=== PATIENT | female | born 1995 | race Two or more races ===

== ENCOUNTER 2021-05-29 11:59 | Emergency (ER) | payer SELFPAY ==
[2021-05-29] MEDS ORDERED: Sodium Chloride 0.9% 1,000 ML IV ONE (12:53)
[2021-05-29] MEDS ORDERED: Ondansetron 4 MG/2 ML SDV IVPUSH ONE (12:53)
[2021-05-29] MEDS ORDERED: Sodium Chloride 0.9% 10 ML Syringe FLUSH PRN (12:53)
[2021-05-29] MEDS ORDERED: Sodium Chloride 0.9% 2.5 ML Syringe FLUSH PRN (12:53)
[2021-05-29 13:18] LABS: BLOOD UREA NITROGEN,BUN 8 mg/dL (7.0-18.0); CARBON DIOXIDE,CO2 16.5 mmol/L (21.0-32.0); CHLORIDE,CL 106 mmol/L (98-107); GLUCOSE RANDOM 109 mg/dL (74-106); LIPASE 126 U/L (73-393); POTASSIUM,K 3.5 mmol/L (3.5-5.1); SODIUM,NA 140 mmol/L (136-145)
--- NOTE | 2021-05-29 14:07 | EDM.PDOC ---
ED HPI GENERAL MEDICAL PROBLEM - General Chief Complaint: Gastrointestinal Problem Stated Complaint: DEHYDRATION Time Seen by Provider: 05/29/21 12:10 - History of Present Illness INITIAL COMMENTS - FREE TEXT/NARRATIVE: HISTORY AND PHYSICAL: History of present illness: This is a 25-year-old female who presents ER today with decreased p.o. intake, nausea, vomiting, midepigastric abdominal pain since drinking an excessive amoun t of alcohol last night. Patient reports that she usually does not drink much alcohol however last night she drank a lot of mixed drinks that were extremely high in alcohol content. Patient reports that she had multiple episodes of nausea vomiting and has been unable to keep any oral liquids or solids down since waking up today. Patient denies any recent fevers, shakes, chills. Patient denies any diarrhea. Patient reports normal bowel movement. Patient denies any dysuria, frequency, urgency. Patient reports she currently taking control medication. Patient denies any recent cough cold or rhinorrhea. Patient denies any melena or bright red blood per rectum. Patient reports that she is not habitual drinker. Patient denies any history of hypertension, diabetes, liver, lung, kidney, abdominal issues in the past. Patient has any abdominal or chest surgeries in the past. Review of systems: As per history of present illness and below otherwise all systems reviewed and negative. Past medical history: As per history of present illness and as reviewed below otherwise noncontributory. Surgical history: As per history of present illness and as reviewed below otherwise no ncontributory. Social history: No reported history of drug abuse. Family history: As per history of present illness and as reviewed below otherwise noncontributory. Physical exam: This patient was seen and evaluated during the 2019 SARS-CoV-2 novel coronavirus pandemic period. Community viral transmission is ongoing at time of this encounter and the emergency department is operating under pandemic response procedures. Constitutional: Patient is oriented to person, place, and time. Appears well- developed and well-nourished. No distress. HEENT: Moist mucous membranes Head: Normocephalic and atraumatic Eyes: Right eye exhibits no discharge. Left eye exhibits no discharge. No scleral icterus Neck: Normal range of motion. No tracheal deviation present. Cardiovascular: Normal rate and regular rhythm. Pulmonary: Effort normal, no respiratory distress. Abd: Soft, nondistended, no rebound/guarding, no psoas or obturator signs, no tenderness at Mcberney's point, no Fowler's sign. Pt does not present with an exam that would be consistent with an acute surgical abdomen at this time, mild tenderness palpation midepigastric region Musculoskeletal: Normal range of motion Neurologic: Alert and oriented to person, place and time. Skin: [place], warm and dry. Psychiatric: Normal mood and affect. Behavior is normal. Judgment and thought content normal. Nursing note and vital signs have been reviewed Diagnostics: CBC, CMP, lipase, Therapeutics: NSS, Zofran Assessment and plan: 25-year-old who presents ER today with nausea vomiting and abdominal discomfort after drinking excessive amount of alcohol yesterday. Patient's labs have been reviewed. Patient does have a slight anion gap which is most likely secondary to her alcohol use and vomiting. Patient has been monitored in the ED and feels much improved after the hydration and Zofran that was given. Patient is tolerating p.o. solids and liquids here in the ED at this time. Patient be discharged home with a prescription for Zofran and instructions regarding alcohol abuse. Definitive disposition and diagnosis as appropriate pending reevaluation and review of above. 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: Musculoskeletal History: Reports: None Neurological History: Reports: None Psychiatric History: Reports: None Endocrine/Metabolic History: Reports: None Hematologic History: Reports: None Immunologic History: Reports: None Oncologic (Cancer) History: Reports: None Dermatologic History: Reports: None - Infectious Disease History Infectious Disease History: Reports: None - Past Surgical History Head Surgeries/Procedures: Reports: None Social & Family History - Family History Family Medical History: No Pertinent Family History - Tobacco Use Tobacco Use Status *Q: Current Some Day Tobacco User Years of Tobacco use: 5 Packs/Tins Daily: 0.2 - Caffeine Use Caffeine Use: Reports: None - Alcohol Use Days Per Week of Alcohol Use: 2 Number of Drinks Per Day: 1 Total Drinks Per Week: 2 - Recreational Drug Use Recreational Drug Use: No ED ROS GENERAL - Review of Systems Review Of Systems: See Below ED EXAM, GENERAL - Physical Exam Exam: See Below Course - Vital Signs Last Recorded V/S: Last Vital Signs Temp 97.2 F 05/29/21 12:17 Pulse 98 05/29/21 12:59 Resp 18 05/29/21 12:59 BP 111/65 05/29/21 12:59 Pulse Ox 98 05/29/21 12:59 - Orders/Labs/Meds Orders: Active Orders 24 hr Category Date Time Status Sodium Chloride 0.9% [Saline Flush] Med 05/29/21 12:53 Active 10 ml FLUSH ASDIRECTED PRN Sodium Chloride 0.9% [Saline Flush] Med 05/29/21 12:53 Active 2.5 ml FLUSH ASDIRECTED PRN Saline Lock Insert [OM.PC] Stat Oth 05/29/21 12:53 Ordered Medication Orders Sodium Chloride (Sodium Chloride 0.9% 10 Ml Syringe) 10 ml FLUSH ASDIRECTED PRN PRN Reason: Keep Vein Open Last Admin: 05/29/21 12:58 Dose: 10 ml Documented by: MARIA ALEJANDRA Sodium Chloride (Sodium Chloride 0.9% 2.5 Ml Syringe) 2.5 ml FLUSH ASDIRECTED PRN PRN Reason: Keep Vein Open Last Admin: 05/29/21 12:58 Dose: 2.5 ml Documented by: MARIA ALEJANDRA Labs: Laboratory Tests 05/29/21 05/29/21 05/29/21 Range/Units 12:21 12:21 12:21 WBC 6.60 (4.0-11.0) K/uL RBC 4.81 (4.30-5.90) M/uL Hgb 14.9 (12.0-16.0) g/dL Hct 41.0 (36.0-46.0) % MCV 85.2 (80.0-98.0) fL MCH 31.0 (27.0-32.0) pg MCHC 36.3 (31.0-37.0) g/dL RDW Std Deviation 39.3 (28.0-62.0) fl RDW Coeff of [place] 13 (11.0-15.0) % Plt Count 244 (150-400) K/uL MPV 10.20 (7.40-12.00) fL Neut % (Auto) 54.7 (48.0-80.0) % Lymph % (Auto) 41.7 H (16.0-40.0) % [place] % (Auto) 3.0 (0.0-15.0) % Eos % (Auto) 0.3 (0.0-7.0) % Baso % (Auto) 0.3 (0.0-1.5) % Neut # (Auto) 3.6 (1.4-5.7) K/uL Lymph # (Auto) 2.8 H (0.6-2.4) K/uL [place] # (Auto) 0.2 (0.0-0.8) K/uL Eos # (Auto) 0.0 (0.0-0.7) K/uL Baso # (Auto) 0.0 (0.0-0.1) K/uL Nucleated RBC % 0.0 /100WBC Nucleated RBCs # 0 K/uL Sodium 140 (136-145) mmol/L Potassium 3.5 (3.5-5.1) mmol/L Chloride 106 (98-107) mmol/L Carbon Dioxide 16.5 L (21.0-32.0) mmol/L BUN 8 (7.0-18.0) mg/dL Creatinine 0.6 (0.6-1.0) mg/dL Est Cr Clr Drug Dosing 104.74 mL/min Estimated GFR (MDRD) > 60.0 ml/min Glucose 109 H (74-106) mg/dL Calcium 8.8 (8.5-10.1) mg/dL Total Bilirubin 0.3 (0.2-1.0) mg/dL AST 19 (15-37) IU/L ALT 34 (14-63) IU/L Alkaline Phosphatase 64 (46-116) U/L Total Protein 7.9 (6.4-8.2) g/dL Albumin 3.8 (3.4-5.0) g/dL Globulin 4.1 H (2.6-4.0) g/dL Albumin/Globulin Ratio 0.9 (0.9-1.6) Lipase 126 (73-393) U/L HCG, Qual NEGATIVE (NEG) Meds: Medications Generic Name Dose Route Start Last Admin Trade Name Freq PRN Reason Stop Dose Admin Sodium Chloride 10 ml 05/29/21 12:53 05/29/21 12:58 Sodium Chloride 0.9% 10 Ml Syringe FLUSH 10 ml ASDIRECTED PRN Administration Keep Vein Open Sodium Chloride 2.5 ml 05/29/21 12:53 05/29/21 12:58 Sodium Chloride 0.9% 2.5 Ml Syringe FLUSH 2.5 ml ASDIRECTED PRN Administration Keep Vein Open Discontinued Medications Generic Name Dose Route Start Last Admin Trade Name Freq PRN Reason Stop Dose Admin Sodium Chloride 1,000 mls @ 999 mls/hr 05/29/21 12:53 05/29/21 12:58 Normal Saline IV 05/29/21 13:53 999 mls/hr .Bolus ONE Administration Ondansetron HCl 4 mg 05/29/21 12:53 05/29/21 12:58 Ondansetron 4 Mg/2 Ml Sdv IVPUSH 05/29/21 12:54 4 mg ONETIME ONE Administration Departure - Departure Time of Disposition: 14:07 Disposition: Home, Self-Care 01 Condition: Good Clinical Impression: Alcohol abuse, Dehydration, Nausea & vomiting - Discharge Information Instructions: Alcohol Use Disorder, Nausea and Vomiting, Adult, Dehydration, Adult, [id number] Referrals: PCP,None [Primary Care Provider] - Additional Instructions: You were seen and evaluated in the ER today secondary to dehydration from alcohol use. Please be careful how much you drink. You were given IV fluids in the ED as well as Zofran IV to assist with your nausea. Please make sure you home and drink plenty of liquids. Please get plenty of rest over the next 1 to 2 days. Please return to the ER if your symptoms should return or if you have any new or concerning symptoms. The following information is given to patients seen in the emergency department who are being discharged to home. This information is to outline your options for follow-up care. We provide all patients seen in our emergency department with a follow-up referral. The need for follow-up, as well as the timing and circumstances, are variable depending upon the specifics of your emergency department visit. If you don't have a primary care physician on staff, we will provide you with a referral. We always advise you to contact your personal physician following an emergency department visit to inform them of the circumstance of the visit and for follow-up with them and/or the need for any referrals to a consulting specialist. The emergency department will also refer you to a specialist when appropriate. This referral assures that you have the opportunity for follow-up care with a specialist. All of these measure are taken in an effort to provide you with optimal care, which includes your follow-up. Under all circumstances we always encourage you to contact your private physician who remains a resource for coordinating your care. When calling for follow-up care, please make the office aware that this follow-up is from your recent emergency room visit. If for any reason you are refused follow-up, please contact the [facility] Emergency Department at and asked to speak to the emergency department charge nurse. [facility] [address] [place] [address] [place] [address] Sepsis Event Note (ED) - Evaluation Sepsis Screening Result: No Definite Risk - Focused Exam Vital Signs: Vital Signs Temp Pulse Resp BP Pulse Ox 05/29/21 12:59 98 18 111/65 98 05/29/21 12:17 97.2 F 98 18 99 - My Orders Last 24 Hours: My Active Orders 05/29/21 12:53 Sodium Chloride 0.9% [Saline Flush] 10 ml FLUSH ASDIRECTED PRN Sodium Chloride 0.9% [Saline Flush] 2.5 ml FLUSH ASDIRECTED PRN Saline Lock Insert [OM.PC] Stat - Assessment/Plan Last 24 Hours: My Active Orders 05/29/21 12:53 Sodium Chloride 0.9% [Saline Flush] 10 ml FLUSH ASDIRECTED PRN Sodium Chloride 0.9% [Saline Flush] 2.5 ml FLUSH ASDIRECTED PRN Saline Lock Insert [OM.PC] Stat
== END 2021-05-29 14:46 | disposition home or self-care (01) ==
LOC: MW.ED 11:59
DX: R11.2 Nausea with vomiting, unspecified (principal); E86.0 Dehydration; F10.10 Alcohol abuse, uncomplicated; Z72.0 Tobacco use; Z88.1 Allergy status to other antibiotic agents; Z88.8 Allergy status to other drugs, medicaments and biological substances
CPT/HCPCS: 36415; 80053; 83690; 84703; 85025; 96374; 99284; J2405; J7030

== ENCOUNTER 2021-09-13 21:36 | Emergency (ER) | payer SELFPAY ==
[2021-09-13] MEDS ORDERED: traMADol 50 MG Tab PO ONE (23:13)
--- NOTE | 2021-09-14 00:44 | CR ---
Indication: Pain after fall Technique: Three views Comparison: None Findings: Bones: Alignment is normal. No fractures or bone lesions. Joint spaces: Unremarkable. Soft tissues: Unremarkable. Dictated by Saleem Flor MD @ 09/14/2021 12:42:31 AM (Electronically Signed)
--- NOTE | 2021-09-14 01:01 | EDM.PDOC ---
ED HPI GENERAL MEDICAL PROBLEM - General Chief Complaint: Upper Extremity Injury/Pain Stated Complaint: left shoulder pain Time Seen by Provider: 09/13/21 23:00 - History of Present Illness INITIAL COMMENTS - FREE TEXT/NARRATIVE: HISTORY AND PHYSICAL: History of present illness: This is a 26-year-old female who presents ER today secondary to pain to her left shoulder for approximately 1 month. Patient denies any recent trauma or injury. Patient reports pain with any range of motion. Patient reports that wakes her up at night with severe pain. Patient reports that she has not seen her doctor or an orthopedic doctor for the pain as of yet. Patient reports no pain or discomfort in her hands or fingers. Patient reports full range of motion and sensation distal to her shoulder. Patient denies any pain or discomfort to her left elbow. Review of systems: As per history of present illness and below otherwise all systems reviewed and negative. Past medical history: As per history of present illness and as reviewed below otherwise noncontributory. Surgical history: As per history of present illness and as reviewed below otherwise noncontributory. Social history: No reported history of drug abuse. Family history: As per history of present illness and as reviewed below otherwise noncontributory. Physical exam: This patient was seen and evaluated during the 2019 SARS-CoV-2 novel coronavirus pandemic period. Community viral transmission is ongoing at time of this encounter and the emergency department is operating under pandemic response procedures. Constitutional: Patient is oriented to person, place, and time. Appears well- developed and well-nourished. No distress. HEENT: Moist mucous membranes Head: Normocephalic and atraumatic Eyes: Right eye exhibits no discharge. Left eye exhibits no discharge. No scleral icterus Neck: Normal range of motion. No tracheal deviation present. Cardiovascular: Normal rate and regular rhythm. Pulmonary: Effort normal, no respiratory distress. Abdominal: No distention Musculoskeletal: Normal range of motion Neurologic: Alert and oriented to person, place and time. Skin: [place], warm and dry. Psychiatric: Normal mood and affect. Behavior is normal. Judgment and thought content normal. Nursing note and vital signs have been reviewed Patient's ER physical exam is significant for tenderness to palpation to her left shoulder and scapula. Patient has limited range of motion but this is limited secondary to significant pain and discomfort with any movement. Patient is neurovascular intact distally. Patient has good capillary refill and good radial and ulnar pulses. Patient has good hand grasp elbow flexion extension wrist flexion and extension. Diagnostics: Left shoulder: No acute fracture dislocation DME: Left arm sling has been ordered secondary to patient with likely ligamentous injury. Sling will assist with immobilization and rapid healing. Patient will need to have sling in place for 1 week. Therapeutics: Left arm sling, ibuprofen. Ultram Assessment and plan: This is a 26-year-old female who presents ER today secondary to pain to her left shoulder for approximately 1 month. Patient's x-ray is unremarkable. Patient be placed in an arm sling and instructed to follow-up with orthopedic surgery for further evaluation and management of her pain. Patient be given a prescription for ibuprofen and tramadol to assist with pain. Reassessment at the time of disposition demonstrates that the patient is in no acute distress. The patient has remained stable throughout the entire ED visit and is without objective evidence for acute process requiring urgent intervention or hospitalization. The patient is stable for discharge, counseling is provided as documented above, discussed symptomatic treatment and specific conditions for return. I have spoken with the patient/caregiver and discussed todays findings, in addition to providing specific details for the plan of care. Questions are answered and there is agreement with the plan. Definitive disposition and diagnosis as appropriate pending reevaluation and review of above. left shoulder Pain Score (Numeric/FACES): 10 - Related Data Allergies Allergy/AdvReac Type Severity Reaction Status Date / Time cefazolin Allergy Hives Verified 09/13/21 23:00 cefuroxime [From Ceftin] Allergy Hives Verified 09/13/21 23:00 Home Meds: Home Meds Ibuprofen 600 mg PO Q6HR PRN #30 tablet 09/14/21 [Rx] traMADol [Ultram] 50 mg PO Q6H PRN #12 tab 09/14/21 [Rx] Past Medical History - Past Health History Medical/Surgical History: Denies Medical/Surgical History HEENT History: Reports: None Cardiovascular History: Reports: None Respiratory History: Reports: Asthma Gastrointestinal History: Reports: Other (See Below) Other Gastrointestinal History: has oily stools at times Genitourinary History: Reports: None [employer]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: Musculoskeletal History: Reports: Back Pain, Chronic Neurological History: Reports: None Psychiatric History: Reports: Anxiety Endocrine/Metabolic History: Reports: None Hematologic History: Reports: None Immunologic History: Reports: None Oncologic (Cancer) History: Reports: None Dermatologic History: Reports: None - Infectious Disease History Infectious Disease History: Reports: None - Past Surgical History Head Surgeries/Procedures: Reports: None Musculoskeletal Surgical History: Reports: None Social & Family History - Family History Family Medical History: No Pertinent Family History - Tobacco Use Tobacco Use Status *Q: Current Every Day Tobacco User Years of Tobacco use: 4 Packs/Tins Daily: 0.2 - Caffeine Use Caffeine Use: Reports: Coffee - Recreational Drug Use Recreational Drug Use: No Review of Systems - Review of Systems Review Of Systems: See Below ED EXAM, GENERAL - Physical Exam Exam: See Below Course - Vital Signs Last Recorded V/S: Last Vital Signs Temp 96.9 F 09/13/21 22:54 Pulse 84 09/13/21 22:54 Resp 20 09/13/21 22:54 BP 131/88 09/13/21 22:54 Pulse Ox 98 09/13/21 22:54 - Orders/Labs/Meds Orders: Active Orders 24 hr Category Date Time Status DME for Discharge [COMM] Stat Oth 09/13/21 23:13 Ordered Meds: Medications Discontinued Medications Generic Name Dose Route Start Last Admin Trade Name Mangoq PRN Reason Stop Dose Admin Tramadol HCl 50 mg 09/13/21 23:13 09/13/21 23:19 Tramadol 50 Mg Tab PO 09/13/21 23:14 50 mg ONETIME ONE Administration Departure - Departure Time of Disposition: 01:01 Disposition: Home, Self-Care 01 Condition: Good Clinical Impression: Sprain of left shoulder - Discharge Information Instructions: Shoulder Sprain, How to use a Sling, [id number] Referrals: PCP,None [Primary Care Provider] - Additional Instructions: You were seen and evaluated in ER today secondary to pain to your left shoulder. The x-ray did not reveal any acute fracture or injury. You will be placed in a arm sling to give it rest and help with healing. You will also be given a prescription for ibuprofen and tramadol to help with your pain. Please call the orthopedic doctor in the morning to make an appointment for further assistance. [facility] [address], [address] [place] [address] The following information is given to patients seen in the emergency department who are being discharged to home. This information is to outline your options for follow-up care. We provide all patients seen in our emergency department with a follow-up referral. The need for follow-up, as well as the timing and circumstances, are variable depending upon the specifics of your emergency department visit. If you don't have a primary care physician on staff, we will provide you with a referral. We always advise you to contact your personal physician following an emergency department visit to inform them of the circumstance of the visit and for follow-up with them and/or the need for any referrals to a consulting specialist. The emergency department will also refer you to a specialist when appropriate. This referral assures that you have the opportunity for follow-up care with a specialist. All of these measure are taken in an effort to provide you with optimal care, which includes your follow-up. Under all circumstances we always encourage you to contact your private physician who remains a resource for coordinating your care. When calling for follow-up care, please make the office aware that this follow-up is from your recent emergency room visit. If for any reason you are refused follow-up, please contact the [facility] Emergency Department at and asked to speak to the emergency department charge nurse. [facility] [address] [place] [address] [place] [address] Sepsis Event Note (ED) - Evaluation Sepsis Screening Result: No Definite Risk - Focused Exam Vital Signs: Vital Signs Temp Pulse Resp BP Pulse Ox 09/13/21 22:54 96.9 F 84 20 131/88 98 - My Orders Last 24 Hours: My Active Orders 09/13/21 23:13 DME for Discharge [COMM] Stat - Assessment/Plan Last 24 Hours: My Active Orders 09/13/21 23:13 DME for Discharge [COMM] Stat
== END 2021-09-14 01:15 | disposition home or self-care (01) ==
LOC: MW.ED 21:36
DX: S43.402A Unspecified sprain of left shoulder joint, initial encounter (principal); Z88.1 Allergy status to other antibiotic agents; Z72.0 Tobacco use; X58.XXXA Exposure to other specified factors, initial encounter
CPT/HCPCS: 73030; 99283; A9270